=== PATIENT | male | born 1990 | race Two or more races ===

== ENCOUNTER 2023-10-14 18:22 | Emergency (ER) | payer MEDICAID ==
[~2023-10-14] VITALS: Ht 180.3 cm; Wt 69.0 kg
[~2023-10-14 18:22] MED LIST: OMEP20TA15 PO
[2023-10-14 18:30] VITALS: O2SAT 99
[2023-10-14] MEDS ORDERED: IBUP-2029 MT (18:45)
[2023-10-14] MEDS ORDERED: LIDO700A15 TP (18:46)
[2023-10-14 19:07] VITALS: TEMP 98.1
[2023-10-14 19:08] VITALS: BP 118/83; PULSE 88; RESP 18
[2023-10-14] MEDS: LIDOCAINE 5% PATCH TOP SCH (19:08)
[2023-10-14] MEDS: KETOROLAC 30MG/ML VIAL IM STA (19:08)
== END 2023-10-14 19:09 | disposition home or self-care (01) ==
LOC: ER 18:22
DX: M54.2 Cervicalgia (principal); R42 Dizziness and giddiness; R11.0 Nausea; I10 Essential (primary) hypertension; V49.59XA Passenger injured in collision with other motor vehicles in traffic accident, initial encounter; Y93.89 Activity, other specified; Y92.89 Other specified places as the place of occurrence of the external cause; Y99.8 Other external cause status
CPT/HCPCS: 96372; 99283; J1885; Z7610 ×2